=== PATIENT | female | born 1975 | race Caucasian/White ===

== ENCOUNTER 2020-11-13 12:14 | Emergency (ER) | payer BC ==
[2020-11-13] MEDS ORDERED: cefTRIAXone\\ROCEPHIN 500 MG VIAL ONE (12:47)
[2020-11-13] MEDS ORDERED: Lidocaine 1% PF 5 ML VIAL ONE (12:47)
[2020-11-13] MEDS ORDERED: Azithromycin 250 MG TAB ONE (12:47)
[2020-11-13 13:05] LABS: Bacteria/HPF 4+ HPF (None Seen); Bilirubin Negative (Negative); Blood, Urine 2+ (Negative); Clarity Extra Turbid (Clear); Glucose, Urine (Dipstick) Normal (Negative); Ketone, Urine Negative (Negative); Leukocyte 500 Leu/uL (Negative); Nitrite 2+ (Negative); Protein, Urine (Dipstick) 200 mg/dL (Neg-Trace); RBC/HPF Greater than 50 HPF (0-3); Specific Gravity, Urine 1.031 (1.002-1.036); Urobilinogen Normal mg/dL (Less than 2); WBC/HPF Greater than 50 HPF (0-3)
[2020-11-13 13:06] LABS: Pregnancy Test - Urine (BHCG) Negative (Negative); Pregu Control Background? CLEAR/WHITE (CLR/WHITE); Pregu Control Bar Appear? YES (CONTROL BAR); Specific Gravity 1.031 (1.002-1.036)
== END 2020-11-13 13:40 | disposition home or self-care (01) ==
LOC: ERS 12:14
DX: B37.3 Candidiasis of vulva and vagina (principal); F17.210 Nicotine dependence, cigarettes, uncomplicated
CPT/HCPCS: 81003; 81015; 81025; 96372; 99283; J0696

== ENCOUNTER 2021-08-15 13:24 | Inpatient (IN) | payer BC ==
[2021-08-15 14:01] LABS: #Eosinphils 0.1 thou/uL (0.0-0.7); #Lymphocytes 2.3 thou/uL (1.20-3.40); #Monocytes 0.7 thou/uL (0.11-0.59); #Neutrophils 5.7 thou/uL (1.40-6.50); %Basophils 0.3 % (0.0-1.0); %Eosinophils 1.5 % (0.0-10.0); %Monocytes 7.4 % (0.0-10.0); %Neutrophils 64.8 % (42.0-75.0); Hemoglobin 15.5 g/dL (12.0-16.0); Mean Corpuscular HGB CONC 34.3 g/dL (32.0-36.0); Mean Corpuscular Hemoglobin 28.9 pg (27.0-31.0); Mean Corpuscular Volume 84.4 fL (78.0-98.0); Platelet Count 371 thou/uL (130-400); RBC Distribution Width 12.7 % (11.5-14.5); Red Blood Cell (RBC) Count 5.36 mill/uL (4.20-5.40); White Blood Cell (WBC) Count 8.9 thou/uL (4.8-10.8)
[2021-08-15 14:25] LABS: ALT (SGPT) 36 U/L (8-55); AST (SGOT) 31 U/L (5-34); Albumin 4.6 g/dL (3.5-5.0); Alkaline Phosphatase 165 U/L (40-110); Anion Gap 12 mmol/L (10-20); BUN (Urea Nitrogen) 17 mg/dL (7.0-18.7); Bilirubin, Total 1.2 mg/dL (0.2-1.2); Calc. Creatinine Clearance 0 mL/min (70-130); Calcium 10.1 mg/dL (7.8-10.44); Carbon Dioxide 22 mmol/L (22-29); Chloride 104 mmol/L (98-107); Globulin 3.9 g/dL (2.4-3.5); Glucose 91 mg/dL (70-105); Potassium 4.4 mmol/L (3.5-5.1); Protein, Total 8.5 g/dL (6.0-8.3); Sodium 134 mmol/L (136-145)
[2021-08-15] MEDS ORDERED: Vancomycin 1 GM/200 ML BAG ONE (15:05)
[2021-08-15] MEDS ORDERED: Piperacillin/Tazobactam 3.375 GM VIAL ONE (15:05)
[2021-08-15] MEDS ORDERED: Acetaminophen 325 MG TAB PO PRN (18:15)
[2021-08-15] MEDS ORDERED: Guaifenesin DM 100-10/5 ML UDCUP PO PRN (18:15)
[2021-08-15] MEDS ORDERED: Calcium Carbonate 500 MG ChewTAB PO PRN (18:15)
[2021-08-15] MEDS ORDERED: Senokot S 8.6-50 MG TAB PO PRN (18:15)
[2021-08-15] MEDS ORDERED: Ondansetron PF 4 MG/2 ML Vial IVP PRN (18:15)
[2021-08-15] MEDS ORDERED: Morphine 4 MG/ML VIAL SLOW IVP PRN (18:31)
[2021-08-15] MEDS ORDERED: Morphine 4 MG/ML VIAL ONE (19:19)
[2021-08-15] MEDS ORDERED: Ondansetron PF 4 MG/2 ML Vial ONE (19:19)
[2021-08-15 20:24] LABS: SARS-CoV-2 NAA Rapid Test DETECTED (NotDetected)
[2021-08-15] MEDS: Cefepime 1 GM in Sodium Chloride 0.9% 100 ML IVPB SCH (21:40)
[2021-08-15] MEDS: Famotidine 20 MG TAB PO SCH (21:40)
[2021-08-15] MEDS ORDERED: HYDROcodone/Acetaminophen 5/325 mg Tablet ONE (22:32)
[2021-08-15] MEDS: HYDROcodone/Acetaminophen 5/325 mg Tablet PO PRN (22:34)
[2021-08-16] MEDS: Vancomycin HCl 1.25 GM in Sodium Chloride 0.9% 250 ML 250 ML IVPB SCH ×2 (00:57→12:47)
[2021-08-16] MEDS: Albuterol 200 PUFF (6.7GM INHALER) INH SCH ×4 (00:57→18:21)
[2021-08-16 03:12] VITALS: BMI 29.7
[2021-08-16 06:20] LABS: #Basophils 0.1 thou/uL (0.0-0.2); #Eosinphils 0.1 thou/uL (0.0-0.7); #Lymphocytes 1.7 thou/uL (1.20-3.40); #Monocytes 0.7 thou/uL (0.11-0.59); %Basophils 0.8 % (0.0-1.0); %Eosinophils 1.2 % (0.0-10.0); %Lymphocytes 22.2 % (21.0-51.0); %Monocytes 8.9 % (0.0-10.0); %Neutrophils 66.9 % (42.0-75.0); Hemoglobin 14.3 g/dL (12.0-16.0); Mean Corpuscular HGB CONC 33.9 g/dL (32.0-36.0); Mean Corpuscular Hemoglobin 29.2 pg (27.0-31.0); Mean Corpuscular Volume 86.3 fL (78.0-98.0); Mean Platelet Volume 7.4 fL (7.4-10.4); Platelet Count 319 thou/uL (130-400); RBC Distribution Width 12.7 % (11.5-14.5); Red Blood Cell (RBC) Count 4.89 mill/uL (4.20-5.40); White Blood Cell (WBC) Count 7.4 thou/uL (4.8-10.8)
[2021-08-16 06:30] LABS: Anion Gap 14 mmol/L (10-20); BUN (Urea Nitrogen) 18 mg/dL (7.0-18.7); Calc. Creatinine Clearance 135 mL/min (70-130); Calcium 9.1 mg/dL (7.8-10.44); Carbon Dioxide 19 mmol/L (22-29); Chloride 107 mmol/L (98-107); Glucose 94 mg/dL (70-105); Potassium 4.5 mmol/L (3.5-5.1); Sodium 135 mmol/L (136-145)
[2021-08-16] MEDS: Famotidine 20 MG TAB PO SCH ×2 (07:41→20:37)
[2021-08-16] MEDS: HYDROcodone/Acetaminophen 5/325 mg Tablet PO PRN ×3 (07:41→20:38)
[2021-08-16] MEDS: Enoxaparin Sodium 40 MG/0.4 ML SYRINGE SC SCH (07:42)
[2021-08-16] MEDS: Cefepime 1 GM in Sodium Chloride 0.9% 100 ML IVPB SCH (11:23)
[2021-08-16] MEDS: Cefepime 2 GM in Sodium Chloride 0.9% 100 ML IVPB SCH (20:38)
[2021-08-16 23:33] LABS: Vancomycin, Trough 10.3 ug/mL
[2021-08-17] MEDS: Vancomycin HCl 1.25 GM in Sodium Chloride 0.9% 250 ML 250 ML IVPB SCH ×3 (00:26→17:36)
[2021-08-17] MEDS: HYDROcodone/Acetaminophen 5/325 mg Tablet PO PRN ×4 (03:02→20:57)
[2021-08-17] MEDS: Albuterol 200 PUFF (6.7GM INHALER) INH SCH (03:04)
[2021-08-17] MEDS: Enoxaparin Sodium 40 MG/0.4 ML SYRINGE SC SCH (08:58)
[2021-08-17] MEDS: Cefepime 2 GM in Sodium Chloride 0.9% 100 ML IVPB SCH ×2 (08:58→23:19)
[2021-08-17] MEDS: Famotidine 20 MG TAB PO SCH ×2 (08:59→20:40)
[2021-08-17 23:35] LABS: Vancomycin, Trough 4.7 ug/mL
[2021-08-18] MEDS: HYDROcodone/Acetaminophen 5/325 mg Tablet PO PRN ×3 (00:57→13:24)
[2021-08-18] MEDS: Vancomycin HCl 1.25 GM in Sodium Chloride 0.9% 250 ML 250 ML IVPB SCH ×4 (00:57→10:53)
[2021-08-18] MEDS ORDERED: Cefepime 2 GM in Sodium Chloride 0.9% 100 ML IVPB SCH (02:00)
[2021-08-18 06:47] LABS: #Eosinphils 0.1 thou/uL (0.0-0.7); #Lymphocytes 1.6 thou/uL (1.20-3.40); #Monocytes 0.5 thou/uL (0.11-0.59); %Basophils 0.5 % (0.0-1.0); %Eosinophils 1.6 % (0.0-10.0); %Monocytes 8.6 % (0.0-10.0); %Neutrophils 64.3 % (42.0-75.0); Mean Corpuscular HGB CONC 33.6 g/dL (32.0-36.0); Mean Corpuscular Volume 86.4 fL (78.0-98.0); Platelet Count 297 thou/uL (130-400); RBC Distribution Width 12.6 % (11.5-14.5); Red Blood Cell (RBC) Count 4.82 mill/uL (4.20-5.40); White Blood Cell (WBC) Count 6.2 thou/uL (4.8-10.8)
[2021-08-18 07:07] LABS: Anion Gap 15 mmol/L (10-20); BUN (Urea Nitrogen) 14 mg/dL (7.0-18.7); Calc. Creatinine Clearance 137 mL/min (70-130); Calcium 9.2 mg/dL (7.8-10.44); Carbon Dioxide 20 mmol/L (22-29); Chloride 107 mmol/L (98-107); Glucose 99 mg/dL (70-105); Potassium 4.7 mmol/L (3.5-5.1); Sodium 137 mmol/L (136-145)
[2021-08-18] MEDS: Albuterol 200 PUFF (6.7GM INHALER) INH SCH ×4 (07:21→13:27)
[2021-08-18] MEDS: Enoxaparin Sodium 40 MG/0.4 ML SYRINGE SC SCH (09:25)
[2021-08-18] MEDS: Famotidine 20 MG TAB PO SCH (09:25)
[2021-08-18 11:58] VITALS: BP 129/87; TEMP 98.5
[2021-08-19] MEDS ORDERED: FLU VACC QS2021-22(6MOS UP)/PF 60 MCG/0.5 ML SYRINGE IM ONE (09:00)
== END 2021-08-18 14:40 | disposition short-term general hospital (02) | DRG 539 ==
LOC: ERS 13:24 → ERHOLD 16:46 → SURG B 23:48
PROVIDERS: ADMIT Internal Medicine; ATTEND Internal Medicine
PROC: 8E0ZXY6 Isolation (ICD-10-PCS; principal; 2021-08-15)
DX: M86.142 Other acute osteomyelitis, left hand (principal); U07.1 COVID-19; F17.210 Nicotine dependence, cigarettes, uncomplicated; J44.9 Chronic obstructive pulmonary disease, unspecified
CPT/HCPCS: 36415; 80048; 80053; 80202; 85025; 85652; 86140; 87070; 87205; 96365; 96366; 96367; 96375; J0692; J1650; J2270; J2405; J2543; J3370; J3490; J7050; U0002

== ENCOUNTER 2023-01-22 14:04 | Emergency (ER) | payer OTHER, BC ==
[2023-01-22] MEDS ORDERED: Ketamine 50 MG/ML (10ML VIAL) ONE (15:23)
[2023-01-22] MEDS ORDERED: Ketorolac Tromethamine 30 MG/ML VIAL ONE (16:12)
== END 2023-01-22 16:30 | disposition home or self-care (01) ==
LOC: ERS 14:04
DX: S82.851A Displaced trimalleolar fracture of right lower leg, initial encounter for closed fracture (principal); I10 Essential (primary) hypertension; E03.9 Hypothyroidism, unspecified; W54.1XXA Struck by dog, initial encounter; Z87.891 Personal history of nicotine dependence
CPT/HCPCS: 27818; 96372; 99152; 99156; J1885

== ENCOUNTER 2023-01-24 15:38 | Emergency (ER) | payer BC ==
[2023-01-24] MEDS ORDERED: HYDROcodone/Acetaminophen 10/325 mg Tablet ONE (16:25)
== END 2023-01-24 17:49 | disposition home or self-care (01) ==
LOC: ERS 15:38
DX: S82.851A Displaced trimalleolar fracture of right lower leg, initial encounter for closed fracture (principal); Z87.891 Personal history of nicotine dependence; W19.XXXA Unspecified fall, initial encounter
CPT/HCPCS: 29405

== ENCOUNTER 2023-01-29 10:54 | Outpatient (CLI) | payer BC ==
[2023-01-29 12:50] LABS: #Basophils 0.1 10x3/uL (0.0-0.2); #Eosinphils 0.2 10x3/uL (0.0-0.5); #Monocytes 0.6 10x3/uL (0.0-1.1); #Neutrophils 6.2 10x3/uL (1.5-8.4); %Basophils 0.8 % (0.0-2.0); %Eosinophils 2.3 % (0.0-6.0); %Monocytes 6.1 % (0.0-10.0); %Neutrophils 67.6 % (40.0-75.0); Hemoglobin 14.8 g/dL (12.0-15.5); Mean Corpuscular HGB CONC 33.3 g/dL (32.0-36.0); Mean Corpuscular Hemoglobin 27.8 pg (27.0-33.0); Mean Corpuscular Volume 83.5 fl (81.6-98.3); Mean Platelet Volume 10.5 fl (7.4-10.4); Platelet Count 257 10x3/uL (150-450); RBC Distribution Width 13.6 % (11.5-14.5); Red Blood Cell (RBC) Count 5.33 10x6/uL (3.90-5.03); White Blood Cell (WBC) Count 9.2 10x3/uL (3.5-10.5)
[2023-01-29 13:10] LABS: INR-International Normal Ratio 0.9; Prothrombin Time 10.1 sec (9.5-12.1)
[2023-01-29 13:13] LABS: Anion Gap 15 mmol/L (10-20); BUN (Urea Nitrogen) 11 mg/dL (7.0-18.7); Calc. Creatinine Clearance 0 mL/min (70-130); Calcium 9.7 mg/dL (7.8-10.44); Carbon Dioxide 22 mmol/L (22-29); Chloride 103 mmol/L (98-107); Estimated GFR 108; Glucose 80 mg/dL (70-105); Potassium 4.8 mmol/L (3.5-5.1); Sodium 135 mmol/L (136-145)
== END 2023-01-29 10:55 | disposition home or self-care (01) ==
LOC: LABBT 10:54
PROVIDERS: ATTEND Orthopaedic Surgery
DX: Z01.818 Encounter for other preprocedural examination (principal); S82.851A Displaced trimalleolar fracture of right lower leg, initial encounter for closed fracture
CPT/HCPCS: 80048; 85025; 85610; 93005; 93010

== ENCOUNTER 2023-01-31 10:33 | Day surgery (SDC) | payer BC ==
[2023-01-29 11:39] VITALS: BMI 28.3
[2023-01-31] MEDS ORDERED: Clindamycin/D5W 900 mg/50 ml Premix Bag ONE (12:00)
[2023-01-31] MEDS ORDERED: Fentanyl 250 MCG/5 ML VIAL ONE (12:08)
[2023-01-31] MEDS ORDERED: Ropivacaine 0.5% HCl/PF (150 MG/30 ML VIAL) ONE (12:17)
[2023-01-31] MEDS ORDERED: fentaNYL 50 mcg/mL 1 mL Vial ONE ×3 (12:17→15:14)
[2023-01-31] MEDS ORDERED: Midazolam HCl 2 mg/2 ml Vial ONE (12:17)
[2023-01-31] MEDS ORDERED: Lidocaine 1% PF 5 ML VIAL ONE (13:00)
[2023-01-31] MEDS ORDERED: Succinylcholine 200 MG/10 ml SYRINGE FS ONE (13:00)
[2023-01-31] MEDS ORDERED: Ondansetron PF 4 MG/2 ML Vial ONE (13:00)
[2023-01-31] MEDS ORDERED: Dexamethasone 20 MG/5 ML VIAL ONE (13:00)
[2023-01-31] MEDS ORDERED: PROPOFOL 200 MG/20 ML VIAL ONE (13:00)
[2023-01-31] MEDS ORDERED: Meperidine HCl/PF 25 MG/ML VIAL ONE (14:47)
== END 2023-01-31 16:00 | disposition home or self-care (01) ==
LOC: SDC 10:33
PROVIDERS: ATTEND Orthopaedic Surgery
PROC: 0QSG0ZZ Reposition Right Tibia, Open Approach (ICD-10-PCS; principal; 2023-01-31)
PROC: 0QSJ04Z Reposition Right Fibula with Internal Fixation Device, Open Approach (ICD-10-PCS; principal; 2023-01-31)
DX: S82.851A Displaced trimalleolar fracture of right lower leg, initial encounter for closed fracture (principal); D64.9 Anemia, unspecified; E78.00 Pure hypercholesterolemia, unspecified; F32.A Depression, unspecified; I10 Essential (primary) hypertension; J44.9 Chronic obstructive pulmonary disease, unspecified; Z79.82 Long term (current) use of aspirin; Z79.899 Other long term (current) drug therapy; W18.30XA Fall on same level, unspecified, initial encounter; Z98.51 Tubal ligation status
CPT/HCPCS: C1713; C1776; J1100; J2175; J2250; J2405; J2704; J2795; J3010; J3490